=== PATIENT | female | born 1990 | race Caucasian/White ===

== ENCOUNTER 2019-02-22 09:51 | Emergency (ER) | payer SELFPAY ==
[2019-02-22 10:07] VITALS: BP 119/76
--- NOTE | 2019-02-22 10:31 | ED ---
HPI Chest Pain - HPI Summary HPI Summary: 28 yr old female with the complaint of right sided posterior chest pain. Onset 5 days. She states she has felt ill for five days. No fever, chills or cough. She has had SOB, pain when breaths, and light headed and dizziness. No association with eating. She denies other complaints. She is a smoker. Denies control. She has a family history of vascular disease - History of Current Complaint Chief Complaint: UCBackPain Time Seen by Provider: 02/22/19 10:14 Hx Last Menstrual Period: 02/04/19 Pain Intensity: 3 - Allergy/Home Medications Allergies/Adverse Reactions: Allergies Allergy/AdvReac Type Severity Reaction Status Date / Time amoxicillin Allergy Hives Verified 02/22/19 10:08 Penicillins Allergy Hives Verified 02/22/19 10:08 QUADRIVALENT HPV Allergy Swelling Uncoded 02/22/19 10:08 Of Face,Lips,& Throat PMH/Surg Hx/FS Hx/Imm Hx - Surgical History Surgery Procedure, Year, and Place: cholycysectomy Infectious Disease History: No Infectious Disease History: Denies: Traveled Outside the [place] in Last 30 Days - Family History Known Family History: Positive: Cardiac Disease - Social History Lives: With Family Alcohol Use: None Substance Use Type: Reports: None Smoking Status (MU): Light Every Day Tobacco Smoker Type: Cigarettes Amount Used/How Often: 1/4 PPD Length of Time of Smoking/Using Tobacco: 7 months, quit for 4 years Have You Smoked in the Last Year: Yes Review of Systems Constitutional: Negative Positive: Other - right posterior chest pain Positive: Shortness Of Breath All Other Systems Reviewed And Are Negative: Yes Physical Exam Triage Information Reviewed: Yes Vital Signs On Initial Exam: Initial Vitals Temp Pulse Resp BP Pulse Ox 98.9 F 67 16 119/76 100 02/22/19 10:01 02/22/19 10:01 02/22/19 10:01 02/22/19 10:01 02/22/19 10:01 Vital Signs Reviewed: Yes Appearance: Positive: Well-Appearing, No Pain Distress Skin: Positive: Warm, Skin Color Reflects Adequate Perfusion Head/Face: Positive: Normal Head/Face Inspection Eyes: Positive: EOMI, MIKAL ENT: Positive: Normal ENT inspection Neck: Positive: Nontender Respiratory/Lung Sounds: Positive: Clear to Auscultation, Breath Sounds Present Cardiovascular: Positive: RRR. Negative: Murmur Abdomen Description: Positive: Nontender. Negative: Distended Musculoskeletal: Positive: Strength/ROM Intact. Negative: Edema Left, Edema Right Neurological: Positive: Sensory/Motor Intact, Alert, Oriented to Person Place, Time, CN Intact II-III, Normal Gait, Speech Normal Psychiatric: Positive: Normal - Dixon Coma Scale Best Eye Response: 4 - Spontaneous Best Motor Response: 6 - Obeys Commands Best Verbal Response: 5 - Oriented Coma Scale Total: 15 Diagnostics - Vital Signs Vital Signs Temp Pulse Resp BP Pulse Ox 02/22/19 10:01 98.9 F 67 16 119/76 100 - Laboratory Lab Statement: Any lab studies that have been ordered have been reviewed, and results considered in the medical decision making process. Chest Pain Course/Dx - Course Course Of Treatment: 28 yr old with SOB and pleuritic chest pain. She signed out AMA and refused transfer to ER by ambulance. - Diagnoses Provider Diagnoses: Shortness of breath, Pleuritic chest pain Discharge - Sign-Out/Discharge Documenting (check all that apply): Patient Departure All imaging exams completed and their final reports reviewed: No Studies - Discharge Plan Condition: Good Disposition: AGAINST MEDICAL ADVICE Patient Education Materials: Pleurisy (ED), Shortness of Breath (ED) Referrals: No Primary Care Phys,NOPCP [Primary Care Provider] - - Billing Disposition and Condition Condition: GOOD Disposition: Against Medical Advice
== END 2019-02-22 10:27 | disposition left against medical advice (07) ==
LOC: UCCORT 09:51
DX: R07.89 Other chest pain (principal); R06.02 Shortness of breath; R42 Dizziness and giddiness; F17.210 Nicotine dependence, cigarettes, uncomplicated; Z82.49 Family history of ischemic heart disease and other diseases of the circulatory system; Z88.0 Allergy status to penicillin; Z88.7 Allergy status to serum and vaccine
CPT/HCPCS: 99212; G0463